=== PATIENT | male | born 1945 | race Caucasian/White ===

== ENCOUNTER 2019-11-22 16:49 | Emergency (ER) | payer MEDICARE, BC, SELFPAY ==
--- NOTE | ~2019-11-22 | XR_ITS ---
EXAMINATION: XR hand RT min 3V DATE: 11/22/2019 17:22 INDICATION: Laceration of the right second and third fingers. TECHNIQUE: 3 views of right hand were obtained. COMPARISON: None. FINDINGS: There is hyperflexion of third distal interphalangeal joint. No fracture. There is mild ost eoarthritis of first carpometacarpal joint and most of the metacarpophalangeal joints and interphalan geal joints. There is a laceration of dorsal aspect of third digit. No radiopaque foreign body. IMPRESSION: 1. Hyperflexion of third distal interphalangeal joint suspicious for extensor tendon injury. 2. Polyarticular osteoarthritis. Reviewed, dictated and finalized at [facility]. IMPRESSION: 1. Hyperflexion of third distal interphalangeal joint suspicious for extensor t endon injury. 2. Polyarticular osteoarthritis.
--- NOTE | 2019-11-22 17:05 | ED.GENADULT ---
HPI - General Adult General Chief complaint: Wound/Laceration Stated complaint: laceration right /3rd Time Seen by Provider: 11/22/19 17:05 Source: patient Mode of arrival: ambulatory Limitations: no limitations History of Present Illness HPI narrative: 73-year-old male patient presents to the [facility] with complaints of a laceration to the second and third fingers on the right hand. Patient states that he was in the garage making something on a table saw when the wood slipped and he lacerated his fingers on the table saw. Patient states that he lacerated some fingers last year and did have a tetanus done last year so therefore he is up-to-date on his tetanus. Patient denies any numbness or tingling to the tips of the fingers but it is noted that the distal portion of the middle finger is slightly bent and states that this is new. Patient states that all of his fingers were straight and in line prior to the injury today. Related Data Home Medications Medication Instructions Recorded Confirmed albuterol sulfate 2 inh INHALATION DIRECTED 11/22/19 11/22/19 alprazolam 0.25 mg PO DAILY 11/22/19 11/22/19 amitriptyline 100 mg PO DAILY 11/22/19 11/22/19 atorvastatin 20 mg PO DAILY 11/22/19 11/22/19 cyclobenzaprine 10 mg PO DIRECTED 11/22/19 11/22/19 fluticasone furoate-vilanterol 1 inh INHALATION DIRECTED 11/22/19 11/22/19 [Breo Ellipta] ketoconazole 2 % TOPICAL DIRECTED 11/22/19 11/22/19 montelukast 10 mg PO DAILY 11/22/19 11/22/19 sertraline 100 mg PO DAILY 11/22/19 11/22/19 Allergies Allergy/AdvReac Type Severity Reaction Status Date / Time STEROIDS Allergy Mild SWELLING, Uncoded 11/22/19 17:12 JOINTS HURT, NERVOUSNESS, PAINFULL Review of Systems Review of Systems: Narrative: CONSTITUTIONAL: Denies fever, chills, or sweats. EYES: Denies visual changes, redness, or discharge. ENT: Denies rhinorrhea, congestion, sore throat, or otalgia. CARDIOVASCULAR: Denies chest pain, palpitations, or edema. RESPIRATORY: Denies cough or dyspnea. GASTROINTESTINAL: Denies abdominal pain, nausea, vomiting, or diarrhea. GENITOURINARY: Denies dysuria or hematuria. SKIN: Denies rash or itching. Positive laceration to the second and third finger on the right hand. MUSCULOSKELETAL: Denies back pain, joint pain, or myalgia. NEUROLOGIC: Denies headache, numbness, or weakness. PSYCHIATRIC: Denies anxiety or depression. [facility] Social History Social History Smoking status: Smoker, status unknown Alcohol intake: current Comments At the time of my signature I agree with nursing past medical history, surgical, social, and family history. There is no relevant family history pertinent to the presenting complaint. Exam Narrative: Exam Narrative: GENERAL: Well-appearing, well-nourished, and in no acute distress. HEAD: Normocephalic, atraumatic. EYES: PERRLA and EOMI. ENT: Nares clear, no rhinorrhea or epistaxis. Mucous membranes moist. NECK: Supple. No lymphadenopathy CHEST: Clear to auscultation. No respiratory distress. HEART: Regular rate and rhythm. No murmur heard. Normal peripheral pulses. ABDOMEN: Soft, nontender, nondistended, normal active bowel sounds. EXTREMITIES: The R hand is without obvious asymmetry or deformity when compared to the L hand. No swelling, erythema, atrophy, or obvious deformity. Patient has surface trauma noted to the second and third fingers on the right hand. The third finger does have approximately 3 to 4 cm laceration that extends from the distal fingertip down the middle finger on the posterior side not involving the PIP joint. Patient does have excellent range of motion to this finger and denies any numbness or tingling however it is noted that the distal fingertip from the DIP joints to the distal fingertip is slightly curved the patient is unable to straighten this out on his own. Patient states that this is a new finding. P
[2019-11-22 17:06] VITALS: BP 120/75; PULSE 73; RESP 16; TEMP 36.9; O2SAT 98
== END 2019-11-22 18:14 | disposition home or self-care (01) ==
PROVIDERS: Emergency Provider Nurse Practitioner Family; PCP Nurse Practitioner Adult Health
DX: S66.322A Laceration of extensor muscle, fascia and tendon of right middle finger at wrist and hand level, initial encounter (principal); S61.300A Unspecified open wound of right index finger with damage to nail, initial encounter; W27.0XXA Contact with workbench tool, initial encounter; E78.00 Pure hypercholesterolemia, unspecified; M19.90 Unspecified osteoarthritis, unspecified site; F41.9 Anxiety disorder, unspecified; F32.9 Major depressive disorder, single episode, unspecified; Z85.828 Personal history of other malignant neoplasm of skin
CPT/HCPCS: 12002; 73130; 99213; G0463

== ENCOUNTER 2020-08-03 06:54 | Outpatient (NON) | payer MEDICARE, BC, SELFPAY ==
[2020-08-04 16:06] LABS: SARS-CoV-2 RNA PCR Negative
== END 2020-08-03 06:55 ==
LOC: ANHCOVIDDT 07:11
PROVIDERS: PCP Nurse Practitioner Adult Health; Visit Provider Nurse Practitioner Adult Health
DX: J02.9 Acute pharyngitis, unspecified (principal); Z20.828 Contact with and (suspected) exposure to other viral communicable diseases
CPT/HCPCS: 87635; C9803; U0003

== ENCOUNTER 2021-05-09 21:57 | Emergency (ER) | payer MEDICARE, BC, SELFPAY ==
--- NOTE | ~2021-05-09 | XR_ITS ---
XR abdomen/kub 1V DATE: 05/09/2021 21:36 INDICATION: Lower abdominal pain. Nausea and vomiting. Constipation. No bowel movement since 05/04/2021 . TECHNIQUE: Supine AP projection, 2 views COMPARISON: None FINDINGS: Bilateral Steffee plates and screws are noted at L5-S1. There is degenerative spurring of t he lumbar and to a lesser extent thoracic spine. Bilateral hip osteoarthritis. The psoas shadows are intact. No visceromegaly is evident. There is no evidence of bowel obstruction. IMPRESSION: No evidence of bowel obstruction Reviewed, dictated and finalized at [facility]. Reviewed, dictated and finalized at location [facility].
[2021-05-09 21:07] VITALS: BP 144/67; PULSE 72; RESP 18; TEMP 36.3; O2SAT 100
[2021-05-09 21:23] LABS: Basophils Absolute Auto 0.1 K/mm3 (0.0-0.1); Basophils Percent Auto 0.6 % (0.2-1.2); Eosinophils Percent Auto 0.5 % (0-4.4); Hematocrit 40.2 % (42.0-52.0); Hemoglobin 13.6 g/dL (14.0-18.0); Immature Granulocyte Absolute 0.02 K/mm3 (0.00-0.031); Immature Granulocyte Percent A 0.2 % (0-0.5); Lymphocytes Absolute Auto 0.65 K/mm3 (0.9-3.2); Mean Corpuscular HGB Conc 33.8 g/dl (32-36); Mean Corpuscular Volume 100.5 fl (80-100); Mean Platelet Volume 9.5 fl (7.4-10.4); Monocytes Absolute Auto 0.7 K/mm3 (0.1-0.6); Monocytes Percent Auto 8.3 % (2.6-8.5); Neutrophils Absolute Auto 6.7 K/mm3 (1.3-6.7); Neutrophils Percent Auto 82.4 % (45.5-73.1); Platelet Count Result 183 k/mm3 (150-375); Red Cell Distribution Width 12.5 % (11.5-14.5); White Blood Count 8.2 K/mm3 (4.5-10.0)
[2021-05-09 21:34] LABS: Alanine Aminotransferase 19 U/L (4-50); Albumin Level 4.4 g/dL (3.5-5.1); Alkaline Phosphatase 98 U/L (38-126); Anion Gap 13 mmol/L (8-16); Aspartate Amino Transferase 35 U/L (17-59); Bilirubin,Total 1.2 mg/dL (0.2-1.3); Blood Urea Nitrogen 14 mg/dL (9-20); Calcium 9.1 mg/dL (8.4-10.2); Carbon Dioxide 23 mmol/L (22-30); Chloride 101 mmol/L (98-107); Estimated Glomerular Filt Rate > 60; Glucose 126 mg/dL (65-110); Lipase 31 U/L (23-300); Potassium 3.5 mmol/L (3.4-5.0); Sodium 137 mmol/L (137-145)
[2021-05-09 22:01] VITALS: BP 120/76; PULSE 67; RESP 16; O2SAT 98
[2021-05-09 22:43] LABS: Add Urine Microscopic? YES; Appearance Urine Cloudy (Clear); Bilirubin Urine Negative (Negative); Blood Urine Negative (Negative); Color Urine Yellow (Yellow); Glucose Urine UA Negative (Negative); Ketones Urine 1+ mg/dL (Negative); Leukocyte Esterase Ur Negative LEU/UL (Negative); Mucus Urine Rare /lpf; Nitrate Urine Negative (Negative); Protein Urine 1+ mg/dL (Negative); Specific Grav Ur 1.014 (1.001-1.035); Urobilinogen Urine Negative mg/dL (<2.0); WBC Urine 0-3 /hpf
[2021-05-09 22:45] VITALS: BP 124/68; PULSE 66
[2021-05-09 22:47] VITALS: BP 116/71; PULSE 68
[2021-05-09 22:48] VITALS: BP 101/63; PULSE 72
[2021-05-09 23:17] VITALS: BP 119/75; PULSE 69; RESP 16; O2SAT 99
--- NOTE | 2021-05-09 23:22 | ED.GENADULT ---
HPI - General Adult General Chief complaint: Nausea/Vomiting/Diarrhea Stated complaint: constipated, N/V Time Seen by Provider: 05/09/21 22:25 Source: patient History of Present Illness HPI narrative: Patient is a 75 y/o male complaining of constipation since 5 days ago. He states that he tried to take Miralax and Mag citrate without relief. He is only had several small pieces of stool. He had some nausea and vomiting today. He has no significant abdominal pain. Related Data Home Medications Medication Instructions Recorded Confirmed albuterol sulfate 2 inh INHALATION DIRECTED 11/22/19 11/22/19 alprazolam 0.25 mg PO DAILY 11/22/19 11/22/19 amitriptyline 100 mg PO DAILY 11/22/19 11/22/19 atorvastatin 20 mg PO DAILY 11/22/19 11/22/19 cyclobenzaprine 10 mg PO DIRECTED 11/22/19 11/22/19 fluticasone furoate-vilanterol 1 inh INHALATION DIRECTED 11/22/19 11/22/19 [[place]] ketoconazole 2 % TOPICAL DIRECTED 11/22/19 11/22/19 montelukast 10 mg PO DAILY 11/22/19 11/22/19 sertraline 100 mg PO DAILY 11/22/19 11/22/19 Allergies Allergy/AdvReac Type Severity Reaction Status Date / Time STEROIDS Allergy Mild SWELLING, Uncoded 05/09/21 21:54 JOINTS HURT, NERVOUSNESS, PAINFULL Review of Systems Constitutional: Constitutional: Denies chills, Denies fever(s), Denies headache(s) and Denies weakness Eyes: Eyes: Denies blurry vision ENT: Denies headache(s) and Denies neck pain Cardiovascular: Cardiovascular: Denies chest pain and Denies dyspnea Respiratory: Respiratory: Denies cough and Denies dyspnea Gastrointestinal: Gastrointestinal: Denies abdominal pain, Reports constipation, Denies diarrhea, Reports nausea and Reports vomiting Genitourinary: Genitourinary: Denies hematuria and Denies dysuria Musculoskeletal: Musculoskeletal: Denies back pain and Denies neck pain Neurologic: Denies headache(s) and Denies weakness PMFSH Social History Social History Smoking status: Smoker, status unknown Alcohol intake: current Exam Const: General: no acute distress and well developed Orientation/consciousness: oriented to person, oriented to place, oriented to time and patient oriented x3 HENMT: Head: normocephalic Ears: external ears normal General nose exam: Normal external nose present Eyes: General: appearance normal, both eyes and all related structures Conjunctivae: conjunctivae normal Neck: Neck: normal visual inspection and full ROM Chest: Chest palpation & inspection: normal inspection of the chest and no tenderness Resp: Effort & Inspection: normal respiratory effort Auscultation: clear to auscultation bilaterally Cardio: Rate: regular rate Rhythm: regular rhythm GI: GI Palp: No abdominal tenderness and Yes Soft to palpation Skin: General skin exam: normal color and turgor normal Neuro: General: oriented to person, oriented to place, oriented to time and patient oriented x3 Cognition (Neuro): normal cognition Extrem: General: normal to inspection, full ROM and no pedal edema Psych: Appearance: grossly normal Mental Status: mental status grossly normal Affect: normal affect Course Reevaluation(s) Reevaluation #1: Rechecked. Patient feels better. He had good BM after administration of enema. He is also able to tolerate oral intake without vomiting. Date: 05/10/21 Time: 01:34 Vital Signs Vital signs: Vital Signs Temperature 36.3 C L 05/09/21 21:07 Pulse Rate 72 05/09/21 21:07 Respiratory Rate 18 05/09/21 21:07 Blood Pressure 144/67 H 05/09/21 21:07 Pulse Oximetry 100 05/09/21 21:07 Temperature 36.3 C L 05/09/21 21:07 Pulse Rate 69 05/10/21 01:10 Respiratory Rate 16 05/10/21 01:10 Blood Pressure 124/75 05/10/21 01:10 Pulse Oximetry 96 05/10/21 01:10 Medical Decision Making Vital Signs Vital Signs: Vital Signs Temperature 36.3 C L 05/09/21 21:07 Pulse Rate 72
[2021-05-10 01:10] VITALS: BP 124/75; PULSE 69; RESP 16; O2SAT 96
[2021-05-10 01:57] VITALS: BP 128/76; PULSE 63; RESP 16; O2SAT 99
== END 2021-05-10 02:01 | disposition home or self-care (01) ==
PROVIDERS: Emergency Provider Emergency Medicine; PCP Nurse Practitioner Adult Health
DX: K59.00 Constipation, unspecified (principal); R11.2 Nausea with vomiting, unspecified
CPT/HCPCS: 36415; 74018; 80053; 81001; 83690; 85025; 99283

== ENCOUNTER → 2021-09-19 10:00 | Outpatient (CLI) | payer MEDICARE, BC, SELFPAY ==
[2021-09-19 19:07] LABS: SARS-CoV-2 RNA PCR Negative
== END ==
PROVIDERS: PCP Nurse Practitioner Adult Health; Visit Provider Nurse Practitioner Adult Health
DX: J40 Bronchitis, not specified as acute or chronic (principal); Z20.822 Contact with and (suspected) exposure to COVID-19
CPT/HCPCS: C9803; U0003; U0005

== ENCOUNTER 2021-12-05 13:24 | Outpatient (CLI) | payer MEDICARE, BC, SELFPAY ==
--- NOTE | ~2021-12-05 | PE_ITS ---
EXAMINATION: PET skull to mid thigh DATE: 12/05/2021 15:34 INDICATION: Lung mass. TECHNIQUE: Blood glucose level was 105 mg/dL. 10.376 mCi of 18-fluorodeoxyglucose (18-FDG) was admini stered i.v. Low dose computed tomography (CT) images were acquired from the base of the brain to the proximal thighs for attenuation correction and anatomic localization. Automated exposure control was employed. Dose-length product (DLP) was 895 mGy-cm. Positron emission tomography (PET) images were ac quired in the same distribution. COMPARISON: None FINDINGS: Head/neck: There is bilateral supraclavicular lymphadenopathy with increased activity. For example, a right supraclavicular carri mass measures 4.8 x 4.5 cm with maximum SUV of 4.0. Chest: The lungs demonstrate mild atelectasis. There is a small right pleural effusion. A calcified r ight lung nodule is consistent with old granulomatous disease. The heart size is normal. There are co ronary artery calcifications. No pericardial effusion. There is bulky confluent mediastinal lymphaden opathy with increased activity. There is bilateral gynecomastia. Abdomen/pelvis/proximal thighs: The liver, gallbladder, spleen, pancreas, adrenal glands, and kidneys are normal. There is aortocaval and left para-aortic lymphadenopathy with increased activity. Abdomi nal aorta is normal in caliber. The prostate is moderately enlarged. There are no dilated loops of john wel. There are changes of posterior fusion procedure at L5-S1. There is increased activity in bone ma rrow in the lumbar spine and right ilium without abnormal CT correlate, likely bone marrow stimulatio n. IMPRESSION: 1. Bulky bilateral supraclavicular and mediastinal lymphadenopathy with increased activity and retrop eritoneal lymphadenopathy with increased activity, consistent with lymphoma or metastatic disease. Ul trasound-guided core needle biopsy of a right supraclavicular lymph node is recommended. 2. Small right pleural effusion. Reviewed, dictated and finalized at location [facility]. IMPRESSION: 1. Bulky bilateral supraclavicular and mediastinal lymphadenopathy with increas ed activity and retroperitoneal lymphadenopathy with increased activity, consis tent with lymphoma or metastatic disease. Ultrasound-guided core needle biopsy of a right supraclavicular lymph node is recommended. 2. Small right pleural effusion.
[2021-12-05 13:52] LABS: Glucose Point of Care 105 mg/dl (65-105)
== END 2021-12-05 13:25 | disposition home or self-care (01) ==
LOC: ANHIMG 13:25
PROVIDERS: PCP Nurse Practitioner Adult Health; Visit Provider Nurse Practitioner Adult Health
DX: R91.8 Other nonspecific abnormal finding of lung field (principal); R59.0 Localized enlarged lymph nodes; J90 Pleural effusion, not elsewhere classified
CPT/HCPCS: 78815; A9552